=== PATIENT | male | born 1965 | race Hispanic/Latino ===

== ENCOUNTER 2019-03-03 23:57 | Emergency (ER) | payer SELFPAY ==
--- NOTE | 2019-03-04 00:21 | Emergency Department Report ---
HPI - HPI HPI: Room 25 The patient is a 53-year-old male presenting with a chief complaint of altered mental status. She was brought in for altered mental status after visiting a friend's house. Patient is to consume alcohol and denies illicit drug use. Patient is oriented to himself and the current year but was not oriented to place as he thought he was in [facility]. Patient remembers urinating on himself because he was "drunk." Location: [See above] Duration: [See above] Quality: [See above] Severity: [See above] Modifying factors: [see above] Context: [see above] Mode of transportation: [not driving] <MADISYN HERMAN - Last Filed: 03/04/19 05:08> <SLIM MASCORRO - Last Filed: 03/04/19 11:07> - General Time Seen by Provider: 03/04/19 00:08 ED Past Medical Hx - Family History Family history: no significant - Social History Substance Use Type: None (denies illicit drug use), Alcohol <MADISYN HERMAN - Last Filed: 03/04/19 05:08> ED Review of Systems ROS: Stated complaint: AMS Other details as noted in HPI Constitutional: no symptoms reported Eyes: denies: eye pain ENT: denies: throat pain Respiratory: no symptoms reported Cardiovascular: denies: chest pain Endocrine: no symptoms reported Gastrointestinal: denies: abdominal pain Genitourinary: denies: urgency Musculoskeletal: denies: back pain Neurological: denies: headache <MADISYN HERMAN - Last Filed: 03/04/19 05:08> ROS: Stated complaint: AMS Other details as noted in HPI <SLIM MASCORRO - Last Filed: 03/04/19 11:07> Physical Exam - Physical Exam Physical Exam: GENERAL: The patient is well-developed well-nourished male lying on stretcher appearing intoxicated acute distress. [] HEENT: Normocephalic. Atraumatic. Extraocular motions are intact. Patient has moist mucous membranes. NECK: Supple. Trachea midline CHEST/LUNGS: Clear to auscultation. There is no respiratory distress noted. HEART/CARDIOVASCULAR: Regular. There is no tachycardia. There is no gallop rub or murmur. ABDOMEN: Abdomen is soft, nontender. Patient has normal bowel sounds. There is no abdominal distention. SKIN: There is no rash. There is no edema. There is no diaphoresis. NEURO: The patient is awake, appears intoxicated and oriented to self and year. The patient is cooperative. The patient has no focal neurologic deficits. The patient has normal speech MUSCULOSKELETAL: There is no evidence of acute injury. <MADISYN HERMAN - Last Filed: 03/04/19 05:08> - Physical Exam Vital Signs: Vital Signs 03/04/19 03/04/19 03/04/19 00:29 02:34 06:44 Pulse Rate 115 H 78 68 Respiratory 18 16 16 Rate Blood Pressure 140/103 110/61 108/68 [Right] O2 Sat by Pulse 97 97 98 Oximetry 03/04/19 08:10 Pulse Rate 80 Respiratory 16 Rate Blood Pressure 111/70 [Right] O2 Sat by Pulse 94 Oximetry <SLIM MASCORRO - Last Filed: 03/04/19 11:07> ED Course Vital Signs 03/04/19 03/04/19 03/04/19 00:29 02:34 06:44 Pulse Rate 115 H 78 68 Respiratory 18 16 16 Rate Blood Pressure 140/103 110/61 108/68 [Right] O2 Sat by Pulse 97 97 98 Oximetry 03/04/19 08:10 Pulse Rate 80 Respiratory 16 Rate Blood Pressure 111/70 [Right] O2 Sat by Pulse 94 Oximetry <SLIM MASCORRO - Last Filed: 03/04/19 11:07> ED Medical Decision Making - Lab Data Result diagrams: 03/04/19 00:16 03/04/19 00:16 - EKG Data -: EKG Interpreted by Tn EKG shows normal: sinus rhythm Rate: normal - EKG Data When compared to previous EKG there are: previous EKG unavailable Interpretation: nonspecific ST-T wave kings (T-wave inversion in lead V2, aVL) - Differential Diagnosis alcohol intoxication, substance abuse <MADISYN HERMAN - Last Filed: 03/04/19 05:08> - Lab Data Result diagrams: 03/04/19 00:16 03/04/19 00:16 - Medical Decision Making Patient is a 53-year-old male has a history of alcohol abuse. Patient was at a friend's house drinking and became more knee related that he would like to. Patient is [place], cooperative disease not having any nausea vomiting. Patient states he feels "hung over" but otherwise feels fine. Patient's 2013 is been rescinded by me at this time the patient be discharged home in the care of his family. <SLIM MASCORRO - Last Filed: 03/04/19 11:07> Critical care attestation.: If time is entered above; I have spent that time in minutes in the direct care of this critically ill patient, excluding procedure time. <MADISYN HERMAN - Last Filed: 03/04/19 05:08> Critical care attestation.: If time is entered above; I have spent that time in minutes in the direct care of this critically ill patient, excluding procedure time. <SLIM MASCORRO - Last Filed: 03/04/19 11:07> ED Disposition Is pt being admited?: No Does the pt Need Aspirin: No Time of Disposition: 05:08 (d/c to family or when etoh <0.08) <MADISYN HERMAN - Last Filed: 03/04/19 05:08> Is pt being admited?: No Does the pt Need Aspirin: No <SLIM MASCORRO - Last Filed: 03/04/19 11:07> Clinical Impression: Alcohol abuse, Alcohol intoxication Disposition: DC-01 TO HOME OR SELFCARE Condition: Stable Referrals: OCTAVIO CANALES MD [Primary Care Provider] - 3-5 Days
[2019-03-04 00:38] LABS: Basophils # (Auto) 0.1 K/mm3 (0.0-0.1); Basophils % (Auto) 0.9 % (0.0-1.8); Eosinophils # (Auto) 0.5 K/mm3 (0.0-0.4); Eosinophils % (Auto) 7.4 % (0.0-4.3); Hematocrit 43.7 % (35.5-45.6); Hemoglobin 15.1 gm/dl (11.8-15.2); Lymphocytes # (Auto) 2.6 K/mm3 (1.2-5.4); Lymphocytes % (Auto) 39.3 % (13.4-35.0); Mean Corpuscular HGB Conc 35 % (32-34); Mean Corpuscular Volume 111 fl (84-94); Monocytes # (Auto) 0.4 K/mm3 (0.0-0.8); Monocytes % (Auto) 6.6 % (0.0-7.3); Platelet Count 146 K/mm3 (140-440); Red Blood Count 3.94 M/mm3 (3.65-5.03); Red Cell Distribution Width 14.2 % (13.2-15.2)
[2019-03-04] MEDS ORDERED: BENADRYL IV ONE (00:53)
[2019-03-04] MEDS ORDERED: NACL 0.9% 1000 ML 1,000 ML IV ONE (00:53)
[2019-03-04 01:01] LABS: Creatine Kinase MB 3.6 ng/mL (0.0-4.0)
[2019-03-04 01:02] LABS: Alanine Aminotransferase 54 units/L (7-56); Albumin 4.8 g/dL (3.9-5); BUN/Creatinine Ratio 7; Blood Urea Nitrogen 5 mg/dL (9-20); Hemolysis Index 33
[2019-03-04] MEDS ORDERED: VITAMIN B-1 100 MG, FOLVITE 1 MG, INFUVITE 10 ML in NACL 0.9% 1000 ML 1,000 ML IV ONE (01:04)
--- NOTE | 2019-03-04 02:52 | Cat Scan Report ---
PROCEDURE: CT HEAD/BRAIN WO CON TECHNIQUE: Routine axial imaging was obtained of the brain without IV contrast. HISTORY: altered mental status COMPARISONS: None FINDINGS: There is no evidence of acute stroke or hemorrhage. The ventricular system is appropriate in size and is symmetric. The basal cisterns appear normal. The sinuses reveal extensive mucosal thickening invo lving the frontal ethmoidal maxillary and sphenoid sinuses. The mastoid air cells are well pneumatize d. The calvarium appears intact. IMPRESSION: No evidence of acute stroke or hemorrhage. Extensive sinus disease.. This document is electronically signed by Russ Shaw MD., March 04 2019 02:50:23 AM ET
[2019-03-04 03:31] LABS: Amphetamine Screen,Urine PRESUMPTIVE NEGATIVE; Benzodiazepines Screen,Urine PRESUMPTIVE NEGATIVE; Cocaine Screen,Urine PRESUMPTIVE NEGATIVE; Methadone Screen,Urine PRESUMPTIVE NEGATIVE; Opiate Screen,Urine PRESUMPTIVE NEGATIVE
[2019-03-04 04:36] LABS: Cannabinoid Screen,Urine PRESUMPTIVE POSITIVE
[2019-03-04 08:10] VITALS: BP 111/70
== END 2019-03-04 12:09 | disposition home or self-care (01) ==
LOC: ED 23:57
DX: R41.82 Altered mental status, unspecified (principal); F10.129 Alcohol abuse with intoxication, unspecified
CPT/HCPCS: 36415; 70450; 80053; 80307; 82140; 82550; 82553; 84484; 85025; 93005; 93010; 96365; 96366; 96375; 99284; G0480; J1200; J3411; J7030; 80320